=== PATIENT | female | born 1990 | race African-American/Black ===

== ENCOUNTER 2018-11-25 17:35 | Emergency (ER) | payer MEDICAID ==
[~2018-11-25] VITALS: Ht 167.6 cm; Wt 108.0 kg
[2018-11-25 17:59] VITALS: BP 118/59
== END 2018-11-26 | disposition left against medical advice (07) ==
LOC: ER 17:35
DX: Z53.21 Procedure and treatment not carried out due to patient leaving prior to being seen by health care provider (principal)

== ENCOUNTER 2019-02-06 21:24 | Emergency (ER) | payer MEDICAID ==
[~2019-02-06] VITALS: Ht 167.6 cm; Wt 118.0 kg
[2019-02-06] MEDS ORDERED: KETOROLAC 60MG/2ML VIAL IM ONE (23:15)
[2019-02-06] MEDS ORDERED: BACITRACIN ZINC OINT UDPKT TOP ONE (23:15)
[2019-02-06 23:47] VITALS: BP 115/70
[2019-02-07 00:51] LABS: CLARITY URINE CLOUDY (CLEAR); COLOR URINE YELLOW (YELLOW); KETONES URINE NEGATIVE (NEGATIVE); LEUKOCYTE ESTERASE URINE NEGATIVE (NEGATIVE); NITRITE URINE NEGATIVE (NEGATIVE); OCCULT BLOOD URINE NEGATIVE (NEGATIVE); PROTEIN URINE NEGATIVE (NEGATIVE); SPECIFIC GRAVITY URINE 1.038 (1.005-1.030)
== END 2019-02-07 00:47 | disposition home or self-care (01) ==
LOC: ER 21:24
DX: S50.12XA Contusion of left forearm, initial encounter (principal); M25.512 Pain in left shoulder; Z88.0 Allergy status to penicillin; V49.88XA Car occupant (driver) (passenger) injured in other specified transport accidents, initial encounter; Y93.89 Activity, other specified; Y92.89 Other specified places as the place of occurrence of the external cause; Y99.8 Other external cause status
CPT/HCPCS: 81003; 81025; 96372; 99283; J1885